=== PATIENT | female | born 1940 | race Caucasian/White ===

== ENCOUNTER → 2017-04-18 | Outpatient (CLI) | payer OTHER ==
[2017-04-18 09:34] LABS: BASOPHILS # (AUTO) 0.04 10*3/UL; BASOPHILS % (AUTO) 0.9 % (0-1); EOSINOPHILS # (AUTO) 0.12 10*3/UL; EOSINOPHILS % (AUTO) 2.8 % (0-8); HEMATOCRIT 34.6 % (37.0-47.0); LYMPHOCYTES # (AUTO) 0.69 10*3/uL; MEAN CORPUSCULAR HEMOGLOBIN 33.3 PG (27-31); MEAN CORPUSCULAR HGB CONC 31.8 g/dL (33-37); MEAN CORPUSCULAR VOLUME 104.8 FL (81-99); MEAN PLATELET VOLUME 8.5 FL (7.4-12.2); MONOCYTES % (AUTO) 13.8 % (5-15); NEUTROPHILS # (AUTO) 2.86 10*3/UL; NEUTROPHILS % (AUTO) 65.9 % (50-80)
[2017-04-18 09:37] LABS: PLATELET MORPHOLOGY COMMENT NORMAL MORPHOLOGY (NORM); RBC MORPHOLOGY COMMENT NORMAL MORPHOLOGY (NORM); WBC MORPHOLOGY COMMENT NORMAL MORPHOLOGY (NORM)
[2017-04-18 10:12] LABS: BLOOD UREA NITROGEN 18 mg/dL (7-22); BUN/CREATININE RATIO 8.18 (6-20); CALCIUM 9.8 mg/dL (8.7-10.7); SERUM ALBUMIN 3.6 g/dL (3.5-4.8)
== END ==
LOC: LAB 09:16
PROVIDERS: ATTEND Internal Medicine
DX: C90.00 Multiple myeloma not having achieved remission (principal)
CPT/HCPCS: 36415; 80053; 85025